=== PATIENT | male | born 1975 | race Caucasian/White ===

== ENCOUNTER 2017-02-14 12:11 | Outpatient (CLI) ==
[2016-12-15 11:16] VITALS: BMI 41.0
[2017-02-14 12:58] LABS: BASOPHILS % (AUTO) 0.2 % (0.0-3.0); EOSINOPHILS # (AUTO) 0.1 K/ul (0.0-0.7); EOSINOPHILS % (AUTO) 1.3 % (0.0-7.0); HEMATOCRIT 41.5 % (42.0-52.0); HEMOGLOBIN 14.9 g/dl (14.0-18.0); IMMATURE GRANULOCYTE % (AUTO) 0.3 % (0.0-5.0); LYMPHOCYTES # (AUTO) 0.5 K/uL (0.60-3.4); MEAN CORPUSCULAR HEMOGLOBIN 30.7 pg (27.0-31.0); MEAN CORPUSCULAR HGB CONC 35.9 (31.8-35.4); MEAN CORPUSCULAR VOLUME 85.4 fl (80.0-94.0); MONOCYTES # (AUTO) 0.4 K/uL (0.4-2.0); MONOCYTES % (AUTO) 4.1 (0-10); NEUTROPHILS # (AUTO) 7.6 K/ul (2.0-6.9); NEUTROPHILS % (AUTO) 88.1; PLATELET COUNT 177 10^3/uL (140-440); RED BLOOD COUNT 4.86 10^6/ul (4.70-6.10); WHITE BLOOD COUNT 8.62 K/ul (4.2-10.2)
[2017-02-14 13:13] LABS: ALBUMIN 3.9 g/dL (3.4-5.0); ALBUMIN/GLOBULIN RATIO 1.5; ANION GAP 15.3; BILIRUBIN,TOTAL 0.88 mg/dL (0.00-1.20); BUN/CREATININE RATIO 13.49; CALCIUM 9.4 mg/dL (8.2-10.2); CREATININE 1.26 mg/dL (0.60-1.10); POTASSIUM 4.3 mmol/L (3.5-5.1); TOTAL PROTEIN 6.5 g/dL (6.4-8.2)
== END 2017-02-14 12:12 | disposition home or self-care (01) ==
LOC: LAB 12:11
PROVIDERS: ATTEND Emergency Medicine
DX: E11.9 Type 2 diabetes mellitus without complications (principal); I10 Essential (primary) hypertension
CPT/HCPCS: 36415; 80053; 85025

== ENCOUNTER 2017-04-11 12:44 | Outpatient (CLI) ==
[2016-12-15 11:16] VITALS: BMI 41.0
[2017-04-11 13:34] LABS: CHOL/HDL RATIO 5.1 (4.5-6.4)
== END 2017-04-11 12:45 | disposition home or self-care (01) ==
LOC: LAB 12:44
PROVIDERS: ATTEND Emergency Medicine
DX: E11.9 Type 2 diabetes mellitus without complications (principal)
CPT/HCPCS: 36415; 80061; 83036

== ENCOUNTER 2017-07-11 13:32 | Outpatient (CLI) ==
[2016-12-15 11:16] VITALS: BMI 41.0
[2017-07-11 13:46] LABS: BASOPHILS # (AUTO) 0.1 K/uL (0-0.2); BASOPHILS % (AUTO) 0.7 % (0.0-3.0); EOSINOPHILS # (AUTO) 0.2 K/ul (0.0-0.7); EOSINOPHILS % (AUTO) 3.1 % (0.0-7.0); HEMATOCRIT 46.7 % (42.0-52.0); HEMOGLOBIN 16.2 g/dl (14.0-18.0); IMMATURE GRANULOCYTE % (AUTO) 0.3 % (0.0-5.0); LYMPHOCYTES % (AUTO) 14.4 (10.0-50.0); MEAN CORPUSCULAR HEMOGLOBIN 30.2 pg (27.0-31.0); MEAN CORPUSCULAR HGB CONC 34.7 (31.8-35.4); MEAN CORPUSCULAR VOLUME 87.1 fl (80.0-94.0); MONOCYTES # (AUTO) 0.6 K/uL (0.4-2.0); MONOCYTES % (AUTO) 7.8 (0-10); NEUTROPHILS # (AUTO) 5.2 K/ul (2.0-6.9); NEUTROPHILS % (AUTO) 73.7; PLATELET COUNT 215 10^3/uL (140-440); RED BLOOD COUNT 5.36 10^6/ul (4.70-6.10); WHITE BLOOD COUNT 7.02 K/ul (4.2-10.2)
[2017-07-11 14:56] LABS: ALBUMIN/GLOBULIN RATIO 1.25; ANION GAP 13.8; BILIRUBIN,TOTAL 0.6 mg/dL (0.00-1.20); BUN/CREATININE RATIO 14.52; CALCIUM 9.8 mg/dL (8.2-10.2); CHOL/HDL RATIO 4.9 (4.5-6.4); CREATININE 1.17 mg/dL (0.60-1.10); POTASSIUM 4.8 mmol/L (3.5-5.1); TOTAL PROTEIN 7.2 g/dL (6.4-8.2)
[2017-07-12 15:27] LABS: TESTOSTERONE 723 ng/dL (264-916)
== END 2017-07-11 13:33 | disposition home or self-care (01) ==
LOC: LAB 13:32
PROVIDERS: ATTEND Emergency Medicine
DX: E78.5 Hyperlipidemia, unspecified (principal); E11.9 Type 2 diabetes mellitus without complications; I10 Essential (primary) hypertension; E66.9 Obesity, unspecified
CPT/HCPCS: 36415; 80053; 80061; 83036; 84403; 84443; 85025

== ENCOUNTER 2017-10-09 09:59 | Outpatient (CLI) ==
[2016-12-15 11:16] VITALS: BMI 41.0
== END 2017-10-09 10:00 | disposition home or self-care (01) ==
LOC: RHC-LAB 09:59
PROVIDERS: ATTEND Emergency Medicine
DX: E11.9 Type 2 diabetes mellitus without complications (principal); I10 Essential (primary) hypertension; E78.5 Hyperlipidemia, unspecified
CPT/HCPCS: 36415; 80053; 80061; 83036; 84443; 85025

== ENCOUNTER 2018-01-08 10:06 | Outpatient (CLI) ==
[2016-12-15 11:16] VITALS: BMI 41.0
== END 2018-01-08 10:07 | disposition home or self-care (01) ==
LOC: RHC-LAB 10:06
PROVIDERS: ATTEND Emergency Medicine
DX: E11.9 Type 2 diabetes mellitus without complications (principal); E78.5 Hyperlipidemia, unspecified; I10 Essential (primary) hypertension
CPT/HCPCS: 36415; 80053; 80061; 83036; 84443; 85025

== ENCOUNTER 2018-04-09 09:15 | Outpatient (CLI) ==
[2016-12-15 11:16] VITALS: BMI 41.0
== END 2018-04-09 09:16 | disposition home or self-care (01) ==
LOC: RHC-LAB 09:15
PROVIDERS: ATTEND Nurse Practitioner Family
DX: E11.9 Type 2 diabetes mellitus without complications (principal); I10 Essential (primary) hypertension; E03.9 Hypothyroidism, unspecified
CPT/HCPCS: 36415; 80053; 83036; 84443; 85025

== ENCOUNTER 2018-04-23 10:22 | Outpatient (CLI) ==
[2016-12-15 11:16] VITALS: BMI 41.0
== END 2018-04-23 10:23 | disposition home or self-care (01) ==
LOC: RHC-LAB 10:22
PROVIDERS: ATTEND Nurse Practitioner Family
DX: E03.9 Hypothyroidism, unspecified (principal)
CPT/HCPCS: 36415; 84443

== ENCOUNTER 2018-08-27 09:07 | Outpatient (CLI) ==
[2016-12-15 11:16] VITALS: BMI 41.0
== END 2018-08-27 09:08 | disposition home or self-care (01) ==
LOC: RHC-LAB 09:07
PROVIDERS: ATTEND Nurse Practitioner Family
DX: E11.9 Type 2 diabetes mellitus without complications (principal); E03.9 Hypothyroidism, unspecified
CPT/HCPCS: 36415; 80053; 83036; 84443

== ENCOUNTER 2018-11-26 08:07 | Outpatient (CLI) ==
[2016-12-15 11:16] VITALS: BMI 41.0
== END 2018-11-26 08:08 | disposition home or self-care (01) ==
LOC: RHC-LAB 08:07
PROVIDERS: ATTEND Nurse Practitioner Family
DX: E11.9 Type 2 diabetes mellitus without complications (principal); I10 Essential (primary) hypertension; E78.5 Hyperlipidemia, unspecified; E03.9 Hypothyroidism, unspecified
CPT/HCPCS: 36415; 80053; 80061; 83036; 84443; 85025

== ENCOUNTER 2018-12-30 08:08 | Outpatient (CLI) ==
[2016-12-15 11:16] VITALS: BMI 41.0
== END 2018-12-30 08:09 | disposition home or self-care (01) ==
LOC: RHC-LAB 08:08
PROVIDERS: ATTEND Nurse Practitioner Family
DX: E03.9 Hypothyroidism, unspecified (principal); R79.89 Other specified abnormal findings of blood chemistry
CPT/HCPCS: 36415; 84439; 84443; 84481